=== PATIENT | male | born 1995 | race Two or more races ===

== ENCOUNTER 2020-10-28 05:21 | Emergency (ER) | payer OTHER ==
[2020-10-28] MEDS ORDERED: Sodium Chloride 0.9% 1,000 ML IV ONE (05:28)
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
--- NOTE | 2020-10-28 10:25 | CT ---
CT cervical spine Technique: Multiple axial sections were obtained from above C1 inferiorly to the mid T3 level. Reconstructed coronal and sagittal images were obtained. Comparison: No previous study is available. Findings: Sphenoid sinus show slight mucosal thickening and minimal fluid. Vertebral body heights and disc spaces are maintained. No central canal stenosis is seen. No neural foraminal stenosis is seen. Fracture is identified within C7 involving the apophyseal joint on the left side which is minimally comminuted and vertical in orientation. Fracture extends from the inferior to superior apophyseal articular surfaces. Minimal extension into the intervertebral foramen is seen at C7-T1 on the left side. No significant displacement is seen. No additional fracture is appreciated within the cervical spine. No abnormal subluxation is seen. Patchy increased density is seen within the right upper chest which will be described on chest CT. Impression: 1. Minimally comminuted vertical fracture involving the left apophyseal joint which extends into the superior and inferior apophyseal joints on the left side at C7. This fracture shows no significant displacement. 2. No additional fracture is seen within the cervical spine. 3. Other findings as noted above which will be described on additional CT studies. Diagnostic code #3 MTDD
--- NOTE | 2020-10-28 10:27 | CT ---
CT chest Technique: Multiple axial sections through the chest were obtained from above the lung apices inferiorly through the lung bases. Intravenous contrast was utilized. Reconstructed coronal and sagittal images were obtained. Comparison: No prior chest imaging is available. Findings: Thoracic aorta shows no aneurysm. Mediastinum and hilar regions show no adenopathy. No axillary adenopathy is appreciated. No pericardial thickening is seen. Lung window settings were reviewed which show increased density within the right upper chest most likely representing an area of pulmonary contusion. Minimal density is seen anteriorly within the left upper chest. Very slight atelectasis is seen posteriorly within both lung bases. No pleural effusions are seen. No pneumothorax is identified. Bone window settings were reviewed which show a fracture involving the left apophyseal joint at C7. No discrete rib fracture is appreciated. Reconstructed sagittal views of the sternum appear intact. Reconstructed sagittal views of the thoracic spine appear intact. Impression: 1. Fracture involving the left apophyseal joint at C7 is again noted as described on cervical spine CT. 2. Right upper lobe lung contusion and smaller anterior left lung contusion. 3. No other acute abnormality is appreciated on CT study of the chest. Diagnostic code #3 CT abdomen and pelvis Technique: Multiple axial sections were obtained from above the dome of the diaphragm inferiorly through the pubic symphysis. Intravenous contrast was utilized. No oral contrast has been given. Delayed images were also obtained from above the dome of the diaphragm inferiorly through the pubic symphysis. Reconstructed coronal and sagittal images were obtained. Comparison: No prior abdomen and pelvis imaging is available. Findings: Slight artifact is noted from the patient's arms. Liver contains no focal abnormality. Gallbladder contains no calcified gallstones. Spleen size is normal. Pancreas shows no discrete abnormality. Kidneys show symmetric contrast enhancement with no hydronephrosis or mass. Delayed images show contrast throughout the ureters and within the bladder which show no extravasation. Abdominal aorta shows no aneurysm. No retroperitoneal adenopathy or mesenteric abnormalities are appreciated. No pelvic mass or adenopathy is seen. Appendix is seen which is normal in size. No bowel dilatation is seen. Bone window settings were reviewed. Nothing acute is seen within the visualized lumbar spine. No acute osseous finding is appreciated. Impression: 1. Nothing acute is seen on CT study of the abdomen and pelvis. Diagnostic code #1 MTDD
--- NOTE | 2020-10-28 10:29 | CT ---
Head CT Technique: Multiple axial sections through the brain were obtained. Intravenous contrast was not utilized. Reconstructed coronal and sagittal images were obtained. Comparison: No prior intracranial imaging is available. Findings: Ventricles along with basal cisterns and sulci over the convexities are within normal limits for the patient's age. No abnormal parenchymal densities are seen. No evidence of intracranial hemorrhage is seen. No midline shift or mass-effect is seen. Mild soft tissue swelling is seen within the left upper lateral scalp. Bone window settings were reviewed which show slight mucosal thickening within the right sphenoid sinus and a small amount of fluid within the left sphenoid sinus. No other paranasal sinus findings are appreciated. Visualized mastoid sinuses show nothing acute. No acute calvarial abnormality is appreciated. Increased density is noted around the right orbit as well as anterior soft tissue swelling. Right globe projects anteriorly in relation to the left side. This finding will be further described on facial CT exam. Impression: 1. Soft tissue swelling within the left upper lateral scalp. 2. No acute intracranial abnormality is appreciated. 3. Minimal sphenoid sinus findings which are likely incidental. 4. Right orbital finding as noted above. Diagnostic code #3 MTDD
--- NOTE | 2020-10-28 10:31 | CT ---
CT maxillofacial Technique: Multiple axial sections through the facial bones were obtained. Reconstructed coronal and sagittal images were obtained. Comparison: No prior facial CT exam is available. Findings: Defect is noted within the anterior nasal bone presumably due to fracture which could possibly be old as no adjacent soft tissue swelling is seen. Nasal septal deviation is seen which is believed to be developmental. No additional facial fracture is seen. Right globe is a minimally displaced anteriorly. There is slight thickening of the right orbital wall which is most notable posteriorly. Soft tissue density is seen around the orbit within the periorbital fat which is asymmetric to the posterior region. Diffuse anterior soft tissue swelling is noted. No orbital fracture is seen. Left orbit appears normal. Impression: 1. Anteriorly displaced right orbit as compared to the left side. Right orbit shows mild wall thickening within the orbital wall which is particularly prominent posteriorly. Increased density compatible with diffuse inflammatory change and probable blood is seen around the orbit within the fat which also involves the posterior orbit. Soft tissue swelling is noted anteriorly. 2. Deformity of the nasal bone most likely representing old fracture. No soft tissue swelling is seen in this area. 3. No acute orbital fracture is appreciated. Diagnostic code #3 MTDD
--- NOTE | 2020-10-28 10:32 | CR ---
Right hand: 3 views of the right hand were obtained. Comparison: No prior study. Joint spaces are preserved. Soft tissue swelling seen within the distal forearm and within the proximal hand. No acute fracture, dislocation or other bony abnormality is appreciated. Impression: 1. Soft tissue swelling. 2. No acute bony abnormality is appreciated. Diagnostic code #2 MTDD
--- NOTE | 2020-10-28 10:33 | CR ---
Right wrist: 4 views of the right wrist were obtained. Comparison: No prior wrist study is available. Soft tissue swelling is seen within the forearm. Joint spaces within the wrist are maintained. No acute fracture, dislocation or other bony abnormality is appreciated. Impression: 1. Soft tissue swelling. 2. No acute osseous abnormality is appreciated on right wrist exam. Diagnostic code #2 MTDD
== END 2020-10-28 08:20 ==
LOC: JD.ED 05:21 → EDBD 05:21 → JD.ED 08:20
DX: S12.690A Other displaced fracture of seventh cervical vertebra, initial encounter for closed fracture (principal); S00.11XA Contusion of right eyelid and periocular area, initial encounter; S27.322A Contusion of lung, bilateral, initial encounter; S80.212A Abrasion, left knee, initial encounter; F10.129 Alcohol abuse with intoxication, unspecified; H11.31 Conjunctival hemorrhage, right eye; Z20.822 Contact with and (suspected) exposure to COVID-19; V49.40XA Driver injured in collision with unspecified motor vehicles in traffic accident, initial encounter
CPT/HCPCS: 36415; 70450; 70486; 71260; 72125; 73110; 73130; 74177; 80053; 80307; 83735; 85007; 85027; 85610; 85730; 87635; 93005; 99285; J7030; 93010; U0002

== ENCOUNTER 2024-09-24 14:22 | Emergency (ER) | payer SELFPAY ==
[2024-09-24] MEDS ORDERED: Sodium Chloride 0.9% 10 ML Syringe FLUSH PRN (15:34)
[2024-09-24 15:51] LABS: BASOPHILS PERCENT AUTO 0.6 % (0.0-1.0); EOSINOPHILS ABSOLUTE AUTO 0.1 K/mm3 (0.0-0.4); HEMOGLOBIN 15.2 gm/dl (14.0-18.0); IMMATURE GRAN ABSOLUTE AUTO 0.02 K/mm3 (0.00-0.05); IMMATURE GRAN PERCENT AUTO 0.4 % (0.0-0.4); LYMPHOCYTES PERCENT AUTO 18.7 % (24.0-44.0); MEAN CORPUSCULAR HEMOGLOBIN 30.8 pg (28.0-32.0); MEAN CORPUSCULAR HGB CONC 35.3 g/dl (32.0-36.0); MEAN PLATELET VOLUME 9.2 fl (9.4-12.4); MONOCYTES ABSOLUTE AUTO 0.7 K/mm3 (0.0-0.8); MONOCYTES PERCENT AUTO 13.5 % (0.0-8.0); NEUTROPHILS ABSOLUTE AUTO 3.4 K/mm3 (1.8-7.7); NEUTROPHILS PERCENT AUTO 65.8 % (41.0-71.0); PLATELET COUNT,PLT 127 K/mm3 (150-400); RED BLOOD CELL COUNT 4.94 M/mm3 (4.52-5.90)
[2024-09-24] MEDS: Lactated Ringers 1,000 ML IV ONE (15:51)
[2024-09-24] MEDS: Ondansetron 4 MG/2 ML SDV IVPUSH ONE (15:52)
[2024-09-24] MEDS: LORazepam 2 MG/ML SDV IVPUSH ONE ×2 (15:52→17:31)
[2024-09-24 16:05] LABS: APPEARANCE,URINE SLT CLOUDY (Clear); BILIRUBIN,URINE 2+ (Negative); COLOR,URINE DARK YELLOW (Yellow); GLUCOSE,URINE NEGATIVE (Negative); KETONES,URINE 4+ (Negative); LEUKOCYTE ESTERASE,URINE NEGATIVE (Negative); NITRITE,URINE NEGATIVE (Negative); OCCULT BLOOD,URINE NEGATIVE (Negative); PH,URINE 7.5 (5.0-8.0); PROTEIN,URINE 2+ (Negative)
[2024-09-24 16:14] LABS: A/G RATIO 1.1 (1-2); ALBUMIN 3.5 g/dl (3.4-5.0); ANION GAP 14.3 (5-15); BILIRUBIN TOTAL 1.3 mg/dL (0.2-1.0); BUN/CREATININE RATIO 14.3 (14-18); CALCIUM 8.8 mg/dL (8.5-10.1); CREATININE 0.7 mg/dL (0.7-1.3); EST CRCL DRUG DOSING (CG) 169.37 mL/min; MAGNESIUM 1.6 mg/dL (1.8-2.4); POTASSIUM,K 3.3 mEq/L (3.5-5.1); PROTEIN TOTAL,TP 6.8 g/dl (6.4-8.2)
[2024-09-24 16:14] LABS: BARBITURATE SCREEN,URINE NEGATIVE (CUTOFF=200); BENZODIAZEPINES SCREEN,URINE NEGATIVE (CUTOFF=150); BUPRENORPHINE SCREEN,URINE NEGATIVE (CUTOFF=10); METHADONE SCREEN, URINE NEGATIVE (CUT0FF=200); METHAMPHETAMINES SCREEN, URINE NEGATIVE (CUTOFF=500); OXYCODONE SCREEN,URINE NEGATIVE (CUT0FF=100); THC SCREEN,URINE 20 NG/ML NEGATIVE (CUTOFF=50)
[2024-09-24 16:39] LABS: AMPHETAMINES SCREEN, URINE NEGATIVE (CUTOFF=500)
[2024-09-24 16:58] LABS: BACTERIA,URINE MODERATE /hpf (FEW); MUCUS,URINE FEW /hpf (FEW); RBC,URINE 0-5 /hpf (0-5); SQUAMOUS EPITHELIAL CELLS,UR 0-5 /hpf (0-5); WBC,URINE 0-5 /hpf (0-5)
[2024-09-24 16:59] LABS: AMORPHOUS SEDIMENT,URINE MANY /hpf (NOT SEEN)
[2024-09-24] MEDS: Magnesium Oxide 400 MG Tab PO ONE (17:11)
[2024-09-24] MEDS: Lactated Ringers 1,000 ML IV SCH (17:31)
[2024-09-24] MEDS: Potassium Chloride 20 MEQ Tab.ER PO ONE (18:33)
== END 2024-09-24 18:30 ==
LOC: JD.ED 14:22
DX: F10.10 Alcohol abuse, uncomplicated (principal); F41.9 Anxiety disorder, unspecified; R17 Unspecified jaundice; Y90.9 Presence of alcohol in blood, level not specified
CPT/HCPCS: 36415; 76705; 80053; 80306; 80307; 81001; 83690; 83735; 85025; 96361; 96374; 96375; 96376; 99284; A9270; J2060; J2405; J7120

== ENCOUNTER 2024-10-02 23:22 | Emergency (ER) | payer SELFPAY | END 2024-10-02 23:55 | LOC: JD.ED 23:22 | DX: F10.10 Alcohol abuse, uncomplicated (principal); Y90.9 Presence of alcohol in blood, level not specified | CPT/HCPCS: 99283 ==